=== PATIENT | female | born 1995 | race Caucasian/White ===

== ENCOUNTER 2017-07-14 05:32 | Outpatient (CLI) | payer BC ==
[~2017-07-14] VITALS: Ht 154.9 cm; Wt 81.6 kg
[2017-07-14] MEDS ORDERED: SERT50TA2 PO (10:49)
[2017-07-14] MEDS ORDERED: BUPR300T43 PO (10:49)
[2017-07-14] MEDS ORDERED: NF-VITD400 PO (10:49)
== END 2017-07-14 10:52 ==
LOC: PREOP 05:32
PROVIDERS: ATTEND Otolaryngology Otolaryngology/Facial Plastic Surgery
DX: Z01.818 Encounter for other preprocedural examination (principal); J35.01 Chronic tonsillitis; R01.1 Cardiac murmur, unspecified

== ENCOUNTER 2017-07-18 06:39 | Day surgery (SDC) | payer BC ==
[~2017-07-18] VITALS: Ht 154.9 cm; Wt 81.6 kg
[~2017-07-18 06:39] MED LIST: BUPR300T43 PO; NF-VITD400 PO; SERT50TA2 PO
--- OUTSIDE RECORDS SUMMARY | 2017-07-18 06:43 | XMS REPORT ---
Author Author [facility] Medical Staff Organization [facility] Address [address] [place], [place] [address] Phone [phone] Care Team Providers Care Transition Specialist Name Role Phone KACIE MCDANIEL PP [phone] Summary purpose CCDA Sent to [facility] Chief Complaint and Reason for Visit Admit Diagnosis 1 ACUTE PHARYNGITIS Problem list No authorized problems tracked for continuity of care are available for this visit. Encounters No authorized problems tracked for encounter diagnoses are available for this visit. Medications No medications recorded for this patient visit Allergies, adverse reactions, alerts No allergy information is available for this patient. Immunizations No immunizations recorded for this patient visit Relevant diagnostic tests and/or laboratory data No authorized results are available for this patient visit History of procedures Procedure Code Code Type Description Date Performed Performing Physician 92218 CPT-4 HETEROPHILE ANTIBODIES 10-02-2016 KACIE ALEJANDRO 69292 CPT-4 COMPLETE CBC W/AUTO DIFF WBC 10-02-2016 KACIE ALEJANDRO 82357 CPT-4 CULTURE, BACTERIA, OTHER 10-02-2016 KACIE ALEJANDRO Functional status No functional or cognitive status observations are available for this visit. Vital signs No authorized vital signs are available for this visit. Social history No Social History or smoking status observations were recorded for this visit. ( Unknown if ever smoked.) Treatment Plan No treatment plan text is available for this visit. Hospital discharge instructions No discharge instruction text is available for this visit.
--- OUTSIDE RECORDS SUMMARY | 2017-07-18 06:43 | XMS REPORT | Clinical Summary ---
Author Author Admin, [facility] Organization All Address Unknown Phone Unavailable Allergies, Adverse Reactions, Alerts Allergy Name Reaction Description Start Date Severity Status Provider Allergies Unknown Conditions or Problems Problem Name Problem Code Onset Date Status Entry Date Provider Comment Standard Description Annotate HEALTH EXAMINATION OF DEFINED SUBPOPULATION V70.5 Active Nicci Cuevas Health examination of defined subpopulations Medication List Medication Instructions Start Date Stop Date Generic Name NDC Status Provider Patient Instruction Drug Treatment Unknown - unknown Procedures Code Procedure Name Date Entry Date Standard Description CPT-35819 Spec Collection and Handling Fee 08:18:22 CDT
--- OUTSIDE RECORDS SUMMARY | 2017-07-18 06:43 | XMS REPORT | Clinical Summary ---
Author Author Admin, [facility] Organization All Address Unknown Phone Unavailable Allergies, [...] Procedure Name Date Entry Date Standard Description CPT-44904 Spec Collection and Handling Fee 08:18:22 CDT
--- OUTSIDE RECORDS SUMMARY | 2017-07-18 06:43 | XMS REPORT ---
Author Author [facility] Medical Staff Organization [facility] Address [address] [place], [place] [address] Phone [phone] Summary purpose TRANSITION OF CARE AUTO GENERATION Chief Complaint and Reason for Visit No authorized Reason for Visit (Admitting Diagnosis) is available for this visit. Problem list No authorized problems tracked for continuity of care are available for this visit. Encounters No authorized problems tracked for encounter diagnoses are available for this visit. Medications No medications recorded for this patient visit Allergies, adverse reactions, alerts No allergy information is available for this patient. Immunizations No immunizations recorded for this patient visit Relevant diagnostic tests and/or laboratory data RESULTS Radiology Results [id number] Chest X-Ray - 2 View PACs Image DATE OF EXAM: Sep 01 2015 RAD 0300-CHEST XRAY 2 VIEW : RADIOLOGY REPORT DATE OF SERVICE: 09/01/15 HISTORY: Tachycardia for 2 months CHEST 2 VIEWS 1100 HOURS The lungs are clear. Heart size and pulmonary vessels are normal. There is no pleural effusion. IMPRESSION: Negative chest. MD CHAPINCITO Weaver/pr09/01/2015 11:24:00 / 09/01/2015 11:41:59 cc:Dr. Rachelle Marshall This document has been electronically Signed by: On: DATE OF EXAM: Sep 01 2015 RAD 0300-CHEST XRAY 2 VIEW : RADIOLOGY REPORT DATE OF SERVICE: 09/01/15 HISTORY: Tachycardia for 2 months CHEST 2 VIEWS 1100 HOURS The lungs are clear. Heart size and pulmonary vessels are normal. There is no pleural effusion. IMPRESSION: Negative chest. MD CHAPINCITO Weaver/pr09/01/2015 11:24:00 / 09/01/2015 11:41:59 cc:Dr. Rachelle Marshall This document has been electronically Signed by: LUIS ALFREDO MILLARD MD On: Sep 01 20152:20P Result Amended on 2015-09-01 at 14:20:49. Previous status was NV. History of procedures No procedures recorded for this patient visit. Functional status No functional or cognitive status [...]
--- OUTSIDE RECORDS SUMMARY | 2017-07-18 06:43 | XMS REPORT ---
Author Author [facility] Medical Staff Organization [facility] Address [address] [place], [place] [address] Phone [phone] Summary purpose CCDA Sent to [facility] Chief Complaint and Reason for Visit No [...] Code Type Description Date Performed Performing Physician 43341 CPT-4 IMMUNOASSAY,INFECTIOUS AGENT 02-27-2016 KACIE ALEJANDRO 20164 CPT-4 MUMPS ANTIBODY 02-27-2016 KACIE ALEJANDRO 11828 CPT-4 RUBELLA ANTIBODY 02-27-2016 KACEI ALEJANDRO 82442 CPT-4 RUBEOLA ANTIBODY 02-27-2016 KACIE ALEJANDRO 96472 CPT-4 VARICELLA-ZOSTER ANTIBODY 02-27-2016 KACIE ALEJANDRO Functional status No functional or [...]
--- OUTSIDE RECORDS SUMMARY | 2017-07-18 06:43 | XMS REPORT | Clinical Summary ---
Author Author Admin, [facility] Organization All Address Unknown Phone Unavailable Allergies, [...] Procedure Name Date Entry Date Standard Description CPT-20102 Spec Collection and Handling Fee 08:18:22 CDT
--- OUTSIDE RECORDS SUMMARY | 2017-07-18 06:43 | XMS REPORT ---
Author Author [facility] Medical Staff Organization [facility] Address [address] [place], [place] [address] Phone [phone] Summary purpose TRANSITION OF CARE AUTO GENERATION [...] tests and/or laboratory data RESULTS Radiology Results [id number] Chest X-Ray - 2 View PACs Image DATE OF EXAM: Sep 01 2015 RAD 0300-CHEST XRAY 2 VIEW : RADIOLOGY REPORT DATE OF SERVICE: 09/01/15 HISTORY: Tachycardia for 2 months CHEST 2 VIEWS 1100 HOURS The lungs are clear. Heart size and pulmonary vessels are normal. There is no pleural effusion. IMPRESSION: Negative chest. MD CHAPINCITO Weaver/ky09/01/2015 11:24:00 / 09/01/2015 11:41:59 cc:Dr. Rachelle Marshall [...] pleural effusion. IMPRESSION: Negative chest. MD CHAPINCITO Weaver/ky09/01/2015 11:24:00 / 09/01/2015 11:41:59 cc:Dr. Rachelle Marshall This document has been electronically Signed by: LUIS ALFREDO MILLARD MD On: Sep 01 20152:20P Result Amended on 2015-09-01 at 14:20:49. Previous status was OR. History of procedures No procedures recorded for [...]
--- OUTSIDE RECORDS SUMMARY | 2017-07-18 06:43 | XMS REPORT ---
Author [facility] Medical Staff Organization [facility] Address [address] [place], [place] [address] Phone [phone] Summary purpose TRANSITION OF CARE AUTO GENERATION [...] for this patient visit History of procedures No procedures recorded for [...]
--- OUTSIDE RECORDS SUMMARY | 2017-07-18 06:43 | XMS REPORT ---
Author Author [facility] Medical Staff Organization [facility] Address [address] [place], [place] [address] Phone [phone] Care Team Providers Care Magnesium Mill Operator Name Role Phone KACIE MCDANIEL PP [phone] Summary purpose CCDA Sent to [facility] Chief Complaint and Reason for Visit [...] Code Type Description Date Performed Performing Physician 94475 CPT-4 ROUTINE VENIPUNCTURE 06-12-2017 KACIE ALEJANDRO 44390 CPT-4 ASSAY OF VITAMIN D 06-12-2017 KACIE ALEJANDRO 20124 CPT-4 PROTEIN E-PHORESIS, SERUM 06-12-2017 KACIE ALEJANDRO 10536 CPT-4 ASSAY OF PROTEIN, SERUM 06-12-2017 KACIE ALEJANDRO 69405 CPT-4 ASSAY OF INSULIN 06-12-2017 KACIE ALEJANDRO 08224 CPT-4 COMPREHEN METABOLIC PANEL 06-12-2017 KACIE ALEJANDRO 84469 CPT-4 ASSAY OF DIHYDROXYVITAMIN D 06-12-2017 KACIE ALEJANDRO 71141 CPT-4 ASSAY OF CALCIUM IN URINE 06-12-2017 KACIE ALEJANDRO 57583 CPT-4 ASSAY OF URINE CREATININE 06-12-2017 KACIE ALEJANDRO 13622 CPT-4 ASSAY OF URINE CREATININE 06-12-2017 KACIE ALEJANDRO 51768 CPT-4 PROTEIN E-PHORESIS/URINE/CSF 06-12-2017 KACIE ALEJANDRO 60332 CPT-4 ASSAY OF PROTEIN, URINE 06-12-2017 KACIE ALEJANDRO 60195 CPT-4 IMMUNOASSAY, NONANTIBODY 06-12-2017 KACIE ALEJANDRO 63846 CPT-4 ANGIOTENSIN I ENZYME TEST 06-12-2017 KACIE ALEJANDRO 58885 CPT-4 ASSAY OF PARATHORMONE 06-12-2017 KACIE ALEJANDRO Functional status No functional or [...]
--- OUTSIDE RECORDS SUMMARY | 2017-07-18 06:43 | XMS REPORT ---
Author Author [facility] Medical Staff Organization [facility] Address [address] [place], [place] [address] Phone [phone] Care Team Providers Care Yacht Master Name Role Phone KACIE MCDANIEL PP [phone] Summary purpose CCDA Sent to [facility] Chief Complaint and Reason for Visit No [...] Code Type Description Date Performed Performing Physician 46716 CPT-4 ROUTINE VENIPUNCTURE 04-09-2017 KACIE ALEJANDRO 27219 CPT-4 COMPREHEN METABOLIC PANEL 04-09-2017 KACIE ALEJANDRO 25818 CPT-4 ASSAY OF CALCIUM 04-09-2017 KACIE ALEJANDRO Functional status No functional or [...]
--- OUTSIDE RECORDS SUMMARY | 2017-07-18 06:43 | XMS REPORT ---
Author Author [facility] Medical Staff Organization [facility] Address [address] [place], [place] [address] Phone [phone] Care Team Providers Care Shop Superintendent Name Role Phone KACIE MCDANIEL PP [phone] Summary purpose CCDA Sent to [facility] Chief Complaint and Reason for Visit No [...] Code Type Description Date Performed Performing Physician 77655 CPT-4 CULTURE, BACTERIA, OTHER 05-05-2017 KACIE ALEJANDRO Functional status No functional or [...]
--- OUTSIDE RECORDS SUMMARY | 2017-07-18 06:43 | XMS REPORT | Clinical Summary ---
Author Author Admin, [facility] Organization All Address Unknown Phone Unavailable [...] Procedure Name Date Entry Date Standard Description CPT-25258 Spec Collection and Handling Fee 08:18:22 CDT
--- OUTSIDE RECORDS SUMMARY | 2017-07-18 06:44 | XMS REPORT ---
Author Author [facility] Medical Staff Organization [facility] Address [address] [place], [place] [address] Phone [phone] Care Team Providers Care Records Supervisor Name Role Phone KACIE MCDANIEL PP [phone] Summary purpose CCDA Sent to [facility] Chief Complaint and Reason for Visit [...] Code Type Description Date Performed Performing Physician 20607 CPT-4 COMPREHEN METABOLIC PANEL 04-01-2017 KACIE ALEJANDRO 15957 CPT-4 GLYCOSYLATED HEMOGLOBIN TEST 04-01-2017 KACIE ALEJANDRO 18698 CPT-4 LIPID PANEL 04-01-2017 KACIE ALEJANDRO 07821 CPT-4 ASSAY THYROID STIM HORMONE 04-01-2017 KACIE ALEJANDRO 13155 CPT-4 COMPLETE CBC W/AUTO DIFF WBC 04-01-2017 KACIE ALEJANDRO 59955 CPT-4 ASSAY OF PARATHORMONE 04-01-2017 KACIE ALEJANDRO 66430 CPT-4 ASSAY OF VITAMIN D 04-01-2017 KACIE ALEJANDRO 72228 CPT-4 ROUTINE VENIPUNCTURE 04-01-2017 KACIE ALEJANDRO Functional status No functional or [...]
--- OUTSIDE RECORDS SUMMARY | 2017-07-18 06:44 | XMS REPORT | Continuity of Care Document ---
Demographics x Preferred Language Unknown Marital Status Unknown Moravian Affiliation Unknown Race Unknown Ethnic Group Unknown Author Author [facility] Organization [facility] Address Unknown Phone Unavailable Allergies Medications Problems Date Dx Coded Attending Type Code Diagnosis Diagnosed By 02/27/2016 KACIE MCDANIEL Z02.9 Encounter for administrative examinations , unspecified 10/02/2016 SIRI MCDANIELICA Neto Quiroz J02.9 Acute pharyngitis, unspecified 04/01/2017 SIRI MCDANIELICA L D E83.52 Hypercalcemia 04/01/2017 KACIE MCDANIEL L D Z00.00 Encntr for general adult medical exam w/ o abnormal findings 04/09/2017 SIRI MCDANIELICA L D E83.52 Hypercalcemia 04/09/2017 SIRI MCDANIELICA L D R94.5 Abnormal results of liver function studies 05/05/2017 SIRI MCDANIELICA L D J03.90 Acute tonsillitis, unspecified 06/12/2017 SIRI MCDANIELICA L D E83.52 Hypercalcemia 06/12/2017 SIRI MCDANIELICA L D E88.81 Metabolic syndrome Procedures Code [place] [address] IMMUNOASSAY INFECTIOUS AGENT JAVON CARLISLEPSIRIKACIE L 02/27/2016 42396 MUMPS ANTIBODY ALEJANDRO WING MAILER MACHINE OPERATOR, KACIE L 02/27/2016 73415 RUBELLA ANTIBODY JAVON CARLISLEPramod KACIE L 02/27/2016 75214 RUBEOLA ANTIBODY JAVON CARLISLEPramod KACIE L 02/27/2016 40474 VARICELLA-ZOSTER ANTIBODY JAVON CARLISLEPSIRIKACIE L 02/27/2016 97349 COMPLETE CBC W/AUTO DIFF WBC JAVON CARLISLEPSIRIKACIE L 10/02/2016 23793 HETEROPHILE ANTIBODY SCREEN JAVON CARLISLEPramod KACIE L 10/02/2016 18707 CULTURE OTHR SPECIMN AEROBIC JAVON CARLISLEPramod KACIE L 10/02/2016 92702 ROUTINE VENIPUNCTURE ALEJANDRO INES KACIE L 04/01/2017 55271 COMPREHEN METABOLIC PANEL JAVON CARLISLEKACIE Benavidez L 04/01/2017 95709 LIPID PANEL KACIE MCDANIEL 04/01/2017 58244 VITAMIN D 25 HYDROXY KACIE MCDANIEL 04/01/2017 70579 GLYCOSYLATED HEMOGLOBIN TEST KACIE MCDANIEL 04/01/2017 57974 ASSAY OF PARATHORMONE KACIE MCDANIEL 04/01/2017 08183 ASSAY THYROID STIM HORMONE KACIE MCDANIEL 04/01/2017 51152 COMPLETE CBC W/AUTO DIFF WBC KACIE MCDANIEL 04/01/2017 18212 ROUTINE VENIPUNCTURE KACIE MCDANIEL 04/09/2017 29725 COMPREHEN METABOLIC PANEL KACIE MCDANIEL 04/09/2017 17769 ASSAY OF CALCIUM KACIE MCDANIEL 04/09/2017 29918 CULTURE OTHR SPECIMN AEROBIC KACIE MCDANIEL L 05/05/2017 53818 ROUTINE VENIPUNCTURE KACIE MCDANIEL 06/12/2017 34925 COMPREHEN METABOLIC PANEL KACIE MCDANIEL 06/12/2017 27298 ANGIOTENSIN I ENZYME TEST KACIE MCDANIEL 06/12/2017 24589 VITAMIN D 25 HYDROXY KACIE MCDANIEL 06/12/2017 02798 ASSAY OF CALCIUM IN URINE KACIE MCDANIEL 06/12/2017 89386 ASSAY OF URINE CREATININE KACIE MCDANIEL 06/12/2017 58079 VIT D 1 25-DIHYDROXY KACIE MCDANIEL 06/12/2017 85517 GARCIA NONANTIBODY KACIE MCDANIEL 06/12/2017 18720 ASSAY OF INSULIN KACIE MCDANIEL 06/12/2017 29362 ASSAY OF PARATHORMONE KACIE MCDANIEL 06/12/2017 81126 ASSAY OF PROTEIN SERUM KACIE MCDANIEL 06/12/2017 10403 ASSAY OF PROTEIN URINE KACIE MCDANIEL 06/12/2017 08025 PROTEIN E-PHORESIS SERUM KACIE MCDANIEL 06/12/2017 41934 PROTEIN E-PHORESIS/URINE/CSF KACIE MCDANIEL L 06/12/2017 Results Encounters ACCT No. Visit Date/Time Discharge Status Pt. Type Provider Facility Loc./Unit Complaint [id number] 09/05/2015 12:36:00 09/05/2015 12 :36:00 DIS Outpatient NICKI SUN [facility] RAD [id number] 09/01/2015 10:43:00 09/01/2015 10 :43:00 DIS Outpatient NICKI SUN [facility] PANACE [id number] 06/12/2017 12:17:00 06/12/2017 12 :17:[address] [facility] LAB [id number] 05/05/2017 17:18:00 05/05/2017 17 :18:[address] [facility] LAB [id number] 04/09/2017 09:03:00 04/09/2017 09 :03:[address] [facility] LAB [id number] 04/01/2017 12:27:00 04/01/2017 12 :27:[address] [facility] LAB [id number] 10/02/2016 12:24:00 10/02/2016 12 :24:[address] [facility] LAB [id number] 02/27/2016 12:14:00 02/27/2016 12 :14:[address] [facility] OTHER
--- OUTSIDE RECORDS SUMMARY | 2017-07-18 06:44 | XMS REPORT ---
Author [facility] Medical Staff Organization [facility] Address [address] [place], [place] [address] Phone [phone] Summary purpose TRANSITION OF CARE AUTO GENERATION [...]
--- NOTE | 2017-07-18 07:02 | Progress Note-Pre Operative ---
Pre-Operative Progress Note H&P Reviewed The H&P was reviewed, patient examined and no changes noted. Date Seen by Provider: Jul 18, 2017 Time Seen by Provider: 06:45 Date H&P Reviewed: Jul 18, 2017 Time H&P Reviewed: 06:45 Pre-Operative Diagnosis: Chronic/REc Tons LUIS ALFREDO NAPOLES MD Jul 18, 2017 7:02 am
[2017-07-18 07:08] LABS: BASOPHILS # (AUTO) 0.1 10^3/uL (0.0-0.1); BASOPHILS % (AUTO) 1 % (0-10); EOSINOPHILS # (AUTO) 0.1 10^3/uL (0.0-0.3); EOSINOPHILS % (AUTO) 1 % (0-10); LYMPHOCYTES # (AUTO) 2.6 X 10^3 (1.0-4.0); LYMPHOCYTES % (AUTO) 36 % (12-44); MEAN CORPUSCULAR HEMOGLOBIN 27 PG (25-34); MEAN CORPUSCULAR HGB CONC 34 G/DL (32-36); MEAN CORPUSCULAR VOLUME 79 FL (80-99); MEAN PLATELET VOLUME 10.3 FL (7.4-10.4); MONOCYTES # (AUTO) 0.6 X 10^3 (0.0-1.0); MONOCYTES % (AUTO) 8 % (0-12); NEUTROPHILS # (AUTO) 3.9 X 10^3 (1.8-7.8); NEUTROPHILS % (AUTO) 54 % (42-75); PLATELET COUNT 227 10^3/uL (130-400); RED BLOOD COUNT 5.42 10^6/uL (4.35-5.85); RED CELL DISTRIBUTION WIDTH 13.1 % (10.0-14.5); WHITE BLOOD COUNT 7.2 10^3/uL (4.3-11.0)
[2017-07-18] MEDS ORDERED: LACTATED RINGERS 1,000 ML IV PRN (07:20)
[2017-07-18 07:23] VITALS: BP 123/86
[2017-07-18] MEDS ORDERED: MIDAZOLAM 2 MG/2 ML (VERSED) VIAL ONE (07:51)
[2017-07-18] MEDS ORDERED: fentaNYL INJECTION 100 MCG/2 ML AMP ONE (07:51)
[2017-07-18] MEDS ORDERED: ONDANSETRON 4 MG/2 ML (SDV) Z0FRAN ONE (08:33)
[2017-07-18] MEDS ORDERED: LACTATED RINGERS 0 ML IV ONE (08:33)
[2017-07-18] MEDS ORDERED: proPOfol 200 MG/20 ML (DIPRIVAN) VIAL IV ONE (08:33)
[2017-07-18] MEDS ORDERED: SEVOFLURANE (ULTANE) 15 ML INHAL SOLN ONE (08:33)
[2017-07-18] MEDS ORDERED: DEXAMETHASONE 10 MG/ML (DECADRON) 1 ML VIAL ONE ×2 (08:33→08:57)
[2017-07-18] MEDS ORDERED: ROCURONIUM 50 MG/5 ML (ZEMURON) VIAL IV ONE (08:33)
[2017-07-18] MEDS ORDERED: LIDOCAINE PF 2% 5 ML (XYLOCAINE) VIAL ONE (08:33)
[2017-07-18] MEDS ORDERED: NS IV 1000 ML 1,000 ML IV SCH (08:48)
--- NOTE | 2017-07-18 08:48 | Progress Note-Post Operative ---
Post-Operative Progess Note Surgeon (s)/Lieutenant Shift Supervisor (s) Surgeon LUIS ALFREDO NAPOLES MD Lieutenant Shift Supervisor n/a Pre-Operative Diagnosis Chronic/REc Tons Post-Operative Diagnosis same Post-Op Procedure Note Date of Procedure: Jul 18, 2017 Name of Procedure Performed: Tonsillectomy Description & Findings Description and Findings: n/a Anesthesia Type get Estimated Blood Loss minimal Packing none. Specimen(s) collected/removed tonsils LUIS ALFREDO NAPOLES MD Jul 18, 2017 8:48 am
[2017-07-18] MEDS ORDERED: GLYCOPYRROLATE 0.2 MG/ML (ROBINUL) 2 ML VIAL ONE (08:57)
[2017-07-18] MEDS ORDERED: NEOSTIGMINE (BLOXIVERZ ) 1 MG/1ML 10 ML VIAL ONE (08:57)
[2017-07-18] MEDS ORDERED: HYDROcodone/APAP 5 MG/325 MG (LORTAB) TAB PO PRN (09:00)
[2017-07-18] MEDS ORDERED: APAP 325 MG/10.15 ML LIQ (TYLENOL) UDC PO PRN (09:00)
[2017-07-18] MEDS ORDERED: morphine INJ 10 MG/ML 1ML (SYR OR VIAL) IVP PRN (09:15)
[2017-07-18] MEDS ORDERED: ONDANSETRON 4 MG/2 ML (SDV) Z0FRAN IVP PRN (09:15)
[2017-07-18] MEDS: fentaNYL INJECTION 100 MCG/2 ML AMP IVP PRN ×2 (09:18→09:23)
[2017-07-18] MEDS ORDERED: ESMOLOL 100 MG/10 ML (BREVIBLOC) VIAL IV ONE (09:45)
[2017-07-18 09:50] VITALS: BP 145/102
[2017-07-18] MEDS ORDERED: HYDR-3812 PO (10:02)
[2017-07-18] MEDS ORDERED: AZIT250T PO (10:02)
[2017-07-18] MEDS ORDERED: TETRACAINESUCKERS MT (10:02)
[2017-07-18] MEDS ORDERED: DEXAINTSOL PO (10:02)
[2017-07-18 10:20] VITALS: BP 143/108
[2017-07-18 10:50] VITALS: BP 135/91
[2017-07-18 11:20] VITALS: BP 129/86
[2017-07-18 11:46] VITALS: BP 129/83
== END 2017-07-18 11:57 | disposition home or self-care (01) ==
LOC: SDC 06:39
PROVIDERS: ATTEND Otolaryngology Otolaryngology/Facial Plastic Surgery
DX: J35.01 Chronic tonsillitis (principal); R01.1 Cardiac murmur, unspecified; F41.9 Anxiety disorder, unspecified; F32.9 Major depressive disorder, single episode, unspecified; Z79.899 Other long term (current) drug therapy; Z88.1 Allergy status to other antibiotic agents
CPT/HCPCS: 36415; 84703; 85025; 87081

== ENCOUNTER 2017-08-01 06:02 | Day surgery (SDC) | payer BC ==
[~2017-08-01] VITALS: Ht 167.6 cm; Wt 83.9 kg
[~2017-08-01 06:02] MED LIST changes: +AZIT250T PO; +DEXAINTSOL PO; +HYDR-3812 PO; +TETRACAINESUCKERS MT
--- OUTSIDE RECORDS SUMMARY | 2017-08-01 06:12 | XMS REPORT | Continuity of Care Document ---
Demographics x Preferred Language Unknown Marital Status Unknown Church Affiliation Unknown Race Unknown Ethnic Group Unknown Author Author [facility] Organization [facility] Address Unknown Phone Unavailable Allergies There is no data. Medications There is no data. Problems Date Dx Coded Attending Type Code Diagnosis Diagnosed By 02/27/2016 KACIE MCDANIEL Z02.9 Encounter for administrative examinations, unspecified 10/02/2016 KACIE MCDANIEL J02.9 Acute pharyngitis, unspecified 04/01/2017 KACIE MCDANIEL E83.52 Hypercalcemia 04/01/2017 KACIE MCDANIEL Z00.00 Encntr for general adult medical exam w/o abnormal findings 04/09/2017 KACIE MCDANIEL E83.52 Hypercalcemia 04/09/2017 KACIE MCDANIEL R94.5 Abnormal results of liver function studies 05/05/2017 KACIE MCDANIEL J03.90 Acute tonsillitis, unspecified 06/12/2017 KACIE MCDANIEL L D E83.52 Hypercalcemia 06/12/2017 SIRI MCDANIELICA L D E88.81 Metabolic syndrome Procedures Code [place] [address] IMMUNOASSAY INFECTIOUS AGENT JAVON CHACON KACIE Neto 02/27/2016 66913 MUMPS ANTIBODY ALEJANDRO SIDE GUIDER, KACIE L 02/27/2016 31694 RUBELLA ANTIBODY ALEJANDRO SIDE GUIDER, KACIE L 02/27/2016 61072 RUBEOLA ANTIBODY ALEJANDRO SIDE GUIDER, KACIE L 02/27/2016 41825 VARICELLA-ZOSTER ANTIBODY JAVON CHACON KACIE L 02/27/2016 67685 COMPLETE CBC W/AUTO DIFF WBC JAVON CARLISLEPramod KACIE Neto 10/02/2016 82737 HETEROPHILE ANTIBODY SCREEN JAVON CARLISLEPramod KACIE Neto 10/02/2016 70567 CULTURE OTHR SPECIMN AEROBIC JAVON CARLISLEPramod KACIE L 10/02/2016 26177 ROUTINE VENIPUNCTURE JAVON CARLISLEPramod KACIE Neto 04/01/2017 97591 COMPREHEN METABOLIC PANEL KACIE MCDANIEL 04/01/2017 86060 LIPID PANEL KACIE MCDANIEL 04/01/2017 81418 VITAMIN D 25 HYDROXY KACIE MCDANIEL 04/01/2017 43437 GLYCOSYLATED HEMOGLOBIN TEST KACIE MCDANIEL 04/01/2017 66154 ASSAY OF PARATHORMONE KACIE MCDANIEL 04/01/2017 57729 ASSAY THYROID STIM HORMONE KACIE MCDANIEL 04/01/2017 68877 COMPLETE CBC W/AUTO DIFF WBC KACIE MCDANIEL 04/01/2017 05602 ROUTINE VENIPUNCTURE KACIE MCDANIEL 04/09/2017 33061 COMPREHEN METABOLIC PANEL KACIE MCDANIEL 04/09/2017 35325 ASSAY OF CALCIUM KACIE MCDANIEL 04/09/2017 91357 CULTURE OTHR SPECIMN AEROBIC KACIE MCDANIEL 05/05/2017 13818 ROUTINE VENIPUNCTURE KACIE MCDANIEL 06/12/2017 48486 COMPREHEN METABOLIC PANEL KACIE MCDANIEL 06/12/2017 84152 ANGIOTENSIN I ENZYME TEST KACIE MCDANIEL 06/12/2017 91923 VITAMIN D 25 HYDROXY KACIE MCDANIEL 06/12/2017 13505 ASSAY OF CALCIUM IN URINE KACIE MCDANIEL 06/12/2017 20192 ASSAY OF URINE CREATININE KACIE MCDANIEL 06/12/2017 79625 VIT D 1 25-DIHYDROXY KACIE MCDANIEL 06/12/2017 18570 GARCIA NONANTIBODY KACIE MCDANIEL 06/12/2017 96501 ASSAY OF INSULIN KACIE MCDANIEL 06/12/2017 85538 ASSAY OF PARATHORMONE KACIE MCDANIEL 06/12/2017 21113 ASSAY OF PROTEIN SERUM KACIE MCDANIEL 06/12/2017 89684 ASSAY OF PROTEIN URINE KACIE MCDANIEL 06/12/2017 78460 PROTEIN E-PHORESIS SERUM KACIE MCDANIEL 06/12/2017 69021 PROTEIN E-PHORESIS/URINE/ CSF KACIE MCDANIEL 06/12/2017 Results There is no data. Encounters ACCT No. Visit Date/Time Discharge Status Pt. Type Provider Facility Loc./Unit Complaint [id number] 09/05/2015 12:36:00 09/05/2015 12:36:00 DIS Outpatient NICKI SUN [facility] RAD [id number] 09/01/2015 10:43:00 09/01/2015 10:43:00 DIS Outpatient NICKI SUN [facility] PANACE [id number] 06/12/2017 12:17:00 06/12/2017 12:17:00 DIS Outpatient [facility] LAB [id number] 05/05/2017 17:18:00 05/05/2017 17:18:00 DIS Outpatient [facility] LAB [id number] 04/09/2017 09:03:00 04/09/2017 09:03:00 DIS Outpatient [facility] LAB [id number] 04/01/2017 12:27:00 04/01/2017 12:27:00 DIS Outpatient [facility] LAB [id number] 10/02/2016 12:24:00 10/02/2016 12:24:00 DIS Outpatient [facility] LAB [id number] 02/27/2016 12:14:00 02/27/2016 12:14:00 DIS Outpatient [facility] OTHER
--- NOTE | 2017-08-01 06:15 | Progress Note-Pre Operative ---
Pre-Operative Progress Note H&P Reviewed The H&P was reviewed, patient examined and no changes noted. Date Seen by Provider: Aug 01, 2017 Time Seen by Provider: 06:15 Date H&P Reviewed: Aug 01, 2017 Time H&P Reviewed: 06:15 Pre-Operative Diagnosis: Post-op Tonsil Bleed-Day 14 LUIS ALFREDO NAPOLES MD Aug 01, 2017 6:15 am
[2017-08-01] MEDS ORDERED: NS IV 1000 ML 1,000 ML ONE (06:20)
--- NOTE | 2017-08-01 06:20 | Progress Note-Standard ---
Standard Progress Note Progress Notes/Assess & Plan Date Seen by Provider: Aug 01, 2017 Time Seen by Provider: 06:10 Progress/Assessment & Plan ENT-ER NOte/History Physical cc: post -op tonsil bleed- day 14 HPI: Patient is 14 days out from a tonsillectomy/ She began to have bleeding around 4AM this morning and has been persistent since that time. Spitting up blood and has had emesis bled alittle earlier this week but stopped with water gargles. Pre-op HGB-14.7 all-amoxicillin Exam Oral cavity-blood stained bilaterally-no large clot seen oozing but cant' see from where with the blood staining vital signs stable IMP Post-op tonsil bleed day 14 Rec: 1. Fidings discussed with patient and mom. Will Need EUA and repari in the OR. H/H, preg test drawn. IV started 2. Will proceed to OR as soon as a room is available. Depending on what we find jpotentially can go home later today 3. patient got nauseated with last surgery and is requesting a scopolamine patch as well Final Diagnosis Post-op Tonsil Bleed-Day 14 LUIS ALFREDO NAPOLES MD Aug 01, 2017 6:20 am
[2017-08-01] MEDS ORDERED: proPOfol 200 MG/20 ML (DIPRIVAN) VIAL IV ONE (06:45)
[2017-08-01] MEDS ORDERED: fentaNYL INJECTION 100 MCG/2 ML AMP ONE (06:46)
[2017-08-01] MEDS ORDERED: SUCCINYLCHOLINE INJ 100 MG/5 ML SYR ONE (06:46)
[2017-08-01] MEDS ORDERED: ONDANSETRON 4 MG/2 ML (SDV) Z0FRAN ONE (06:46)
[2017-08-01] MEDS ORDERED: SEVOFLURANE (ULTANE) 15 ML INHAL SOLN ONE ×2 (06:46→07:11)
[2017-08-01] MEDS ORDERED: DEXAMETHASONE 10 MG/ML (DECADRON) 1 ML VIAL ONE ×2 (06:46→07:09)
[2017-08-01 06:49] LABS: BASOPHILS % (AUTO) 0 % (0-10); EOSINOPHILS # (AUTO) 0.2 10^3/uL (0.0-0.3); EOSINOPHILS % (AUTO) 1 % (0-10); LYMPHOCYTES # (AUTO) 2.4 X 10^3 (1.0-4.0); LYMPHOCYTES % (AUTO) 12 % (12-44); MEAN CORPUSCULAR HEMOGLOBIN 27 PG (25-34); MEAN CORPUSCULAR HGB CONC 34 G/DL (32-36); MEAN CORPUSCULAR VOLUME 79 FL (80-99); MEAN PLATELET VOLUME 10.5 FL (7.4-10.4); MONOCYTES # (AUTO) 0.6 X 10^3 (0.0-1.0); MONOCYTES % (AUTO) 3 % (0-12); NEUTROPHILS # (AUTO) 16.6 X 10^3 (1.8-7.8); NEUTROPHILS % (AUTO) 84 % (42-75); PLATELET COUNT 421 10^3/uL (130-400); RED BLOOD COUNT 4.46 10^6/uL (4.35-5.85); RED CELL DISTRIBUTION WIDTH 13.4 % (10.0-14.5); WHITE BLOOD COUNT 19.8 10^3/uL (4.3-11.0)
[2017-08-01] MEDS ORDERED: SCOPOLAMINE 1.5 MG (TRANSDERM-SCOP) PATCH ONE (06:54)
[2017-08-01] MEDS ORDERED: MIDAZOLAM 2 MG/2 ML (VERSED) VIAL ONE (06:55)
[2017-08-01 06:59] LABS: ALANINE AMINOTRANSFERASE 45 U/L (0-55); ANION GAP 13 MMOL/L (5-14); ASPARTATE AMINO TRANSFERASE 23 U/L (5-34); BILIRUBIN,TOTAL 0.2 MG/DL (0.1-1.0); BLOOD UREA NITROGEN 12 MG/DL (7-18); BUN/CREATININE RATIO 15; CALCIUM 9.6 MG/DL (8.5-10.1); CARBON DIOXIDE 20 MMOL/L (21-32); CHLORIDE 108 MMOL/L (98-107); CREATININE SERUM 0.78 MG/DL (0.60-1.30); GFR ESTIMATED > 60; GLUCOSE 144 MG/DL (70-105); POTASSIUM 3.8 MMOL/L (3.6-5.0); SODIUM 141 MMOL/L (135-145); TOTAL PROTEIN 7.2 GM/DL (6.4-8.2)
[2017-08-01] MEDS ORDERED: ROCURONIUM 50 MG/5 ML (ZEMURON) VIAL IV ONE (07:06)
[2017-08-01 07:20] LABS: EOSINOPHILS % (MANUAL) 2 %; LYMPHOCYTES % (MANUAL) 8 %; MICROCYTOSIS SLIGHT; NEUTROPHILS % (MANUAL) 87 %
[2017-08-01] MEDS ORDERED: NS IV 1000 ML 1,000 ML IV SCH (07:30)
[2017-08-01] MEDS ORDERED: HYDROcodone/APAP 7.5MG-325 MG/15 ML (LORTAB) UDC PO PRN (07:30)
[2017-08-01] MEDS ORDERED: APAP 325 MG/10.15 ML LIQ (TYLENOL) UDC PO PRN (07:30)
--- NOTE | 2017-08-01 07:30 | Progress Note-Post Operative ---
Post-Operative Progess Note Surgeon (s)/Livestock Judging Coach (s) Surgeon LUIS ALFREDO NAPOLES MD Livestock Judging Coach n/a Pre-Operative Diagnosis Post-op Tonsil Bleed-Day 14 Post-Operative Diagnosis same Post-Op Procedure Note Date of Procedure: Aug 01, 2017 Name of Procedure Performed: Repair of Post-op Tonsil bleed Description & Findings Description and Findings: n/a Anesthesia Type get Estimated Blood Loss minimal Packing none. Specimen(s) collected/removed none LUIS ALFREDO NAPOLES MD Aug 01, 2017 7:30 am
--- OUTSIDE RECORDS SUMMARY | 2017-08-01 07:31 | XMS REPORT | Continuity of Care Document ---
Demographics x Preferred Language Unknown Marital Status Unknown Sikhism Affiliation Unknown Race Unknown Ethnic Group Unknown Author Author [facility] Organization [facility] Address Unknown Phone Unavailable Allergies There is [...] Procedures [place] [address] IMMUNOASSAY INFECTIOUS AGENT JAVON CHACON KACIE Neto 02/27/2016 91020 MUMPS ANTIBODY ALEJANDRO LOCK FITTER, KACIE L 02/27/2016 44760 RUBELLA ANTIBODY ALEJANDRO LOCK FITTER, KACIE L 02/27/2016 70882 RUBEOLA ANTIBODY ALEJANDRO LOCK FITTER, KACIE L 02/27/2016 31860 VARICELLA-ZOSTER ANTIBODY JAVON CHACON KACIE L 02/27/2016 32307 COMPLETE CBC W/AUTO DIFF WBC JAVON CARLISLEPramod KACIE Neto 10/02/2016 82262 HETEROPHILE ANTIBODY SCREEN JAVON CARLISLEPramod KACIE Neto 10/02/2016 85838 CULTURE OTHR SPECIMN AEROBIC JAVON CARLISLEPramod KACIE L 10/02/2016 49307 ROUTINE VENIPUNCTURE JAVON CARLISLEPramod KACIE Neto 04/01/2017 10111 COMPREHEN METABOLIC PANEL KACIE MCDANIEL 04/01/2017 88297 LIPID PANEL KACIE MCDANIEL 04/01/2017 00695 VITAMIN D 25 HYDROXY KACIE MCDANIEL 04/01/2017 19692 GLYCOSYLATED HEMOGLOBIN TEST KACIE MCDANIEL 04/01/2017 70469 ASSAY OF PARATHORMONE KACIE MCDANIEL 04/01/2017 10893 ASSAY THYROID STIM HORMONE KACIE MCDANIEL 04/01/2017 22662 COMPLETE CBC W/AUTO DIFF WBC KACIE MCDANIEL 04/01/2017 82992 ROUTINE VENIPUNCTURE KACIE MCDANIEL 04/09/2017 91769 COMPREHEN METABOLIC PANEL KACIE MCDANIEL 04/09/2017 61708 ASSAY OF CALCIUM KACIE MCDANIEL 04/09/2017 79925 CULTURE OTHR SPECIMN AEROBIC KACIE MCDANIEL 05/05/2017 05607 ROUTINE VENIPUNCTURE KACIE MCDANIEL 06/12/2017 80022 COMPREHEN METABOLIC PANEL KACIE MCDANIEL 06/12/2017 81929 ANGIOTENSIN I ENZYME TEST KACIE MCDANIEL 06/12/2017 55412 VITAMIN D 25 HYDROXY KACIE MCDANIEL 06/12/2017 75443 ASSAY OF CALCIUM IN URINE KACIE MCDANIEL 06/12/2017 88668 ASSAY OF URINE CREATININE KACIE MCDANIEL 06/12/2017 63083 VIT D 1 25-DIHYDROXY KACIE MCDANIEL 06/12/2017 83450 GARCIA NONANTIBODY KACIE MCDANIEL 06/12/2017 79936 ASSAY OF INSULIN KACIE MCDANIEL 06/12/2017 32506 ASSAY OF PARATHORMONE KACIE MCDANIEL 06/12/2017 16107 ASSAY OF PROTEIN SERUM KACIE MCDANIEL 06/12/2017 97690 ASSAY OF PROTEIN URINE KACIE MCDANIEL 06/12/2017 69512 PROTEIN E-PHORESIS SERUM KACIE MCDANIEL 06/12/2017 12351 PROTEIN E-PHORESIS/URINE/ CSF KACIE MCDANIEL 06/12/2017 Results There is no data. Encounters ACCT No. Visit Date/Time Discharge Status Pt. Type Provider Facility Loc./Unit Complaint [id number] 09/05/2015 12:36:00 09/05/2015 12:36:00 DIS Outpatient NICKI SUN [facility] RAD [id number] 09/01/2015 10:43:00 09/01/2015 10:43:00 DIS Outpatient NICKI SUN [facility] PANACE [id number] 06/12/2017 12:17:00 06/12/2017 12:17:00 DIS Outpatient [facility] LAB [id number] 05/05/2017 17:18:00 05/05/2017 17:18:00 DIS Outpatient [facility] LAB [id number] 04/09/2017 09:03:00 04/09/2017 09:03:00 DIS Outpatient [facility] LAB [id number] 04/01/2017 12:27:00 04/01/2017 12:27:00 DIS Outpatient [facility] LAB [id number] 10/02/2016 12:24:00 10/02/2016 12:24:00 DIS Outpatient [facility] LAB [id number] 02/27/2016 12:14:00 02/27/2016 12:14:00 DIS Outpatient [facility] OTHER
[2017-08-01] MEDS ORDERED: LIDOCAINE PF 2% 5 ML (XYLOCAINE) VIAL ONE (07:44)
[2017-08-01] MEDS ORDERED: PROMETHAZINE INJ 25 MG/ML (PHENERGAN) AMP IVP PRN (07:45)
[2017-08-01] MEDS ORDERED: morphine INJ 10 MG/ML 1ML (SYR OR VIAL) IVP PRN (07:45)
[2017-08-01] MEDS ORDERED: MEPERIDINE (DEMEROL) INJ 50 MG/ML IVP PRN (07:45)
[2017-08-01] MEDS ORDERED: ONDANSETRON 4 MG/2 ML (SDV) Z0FRAN IVP PRN (07:45)
[2017-08-01] MEDS ORDERED: morphine INJ 4 MG/ML 1 ML (VIAL/SYRINGE) ONE (07:52)
[2017-08-01 08:25] VITALS: BP 120/78
[2017-08-01] MEDS ORDERED: HYDR-3816 PO (08:33)
[2017-08-01] MEDS ORDERED: ONDN4T PO (08:33)
[2017-08-01 08:55] VITALS: BP 107/83
[2017-08-01 09:58] VITALS: BP 115/96
[2017-08-01] MEDS ORDERED: LACTATED RINGERS 1,000 ML IV PRN (10:45)
== END 2017-08-01 10:30 | disposition home or self-care (01) ==
LOC: EDUNIT# 06:02 → ER 06:07 → SDC 07:28
PROVIDERS: ATTEND Otolaryngology Otolaryngology/Facial Plastic Surgery
DX: J95.830 Postprocedural hemorrhage of a respiratory system organ or structure following a respiratory system procedure (principal)
CPT/HCPCS: 36415; 80053; 85007; 85027; 86850; 86900; 86901; 96360